=== PATIENT | female | born 1970 | race American Indian/Alaskan Native ===

== ENCOUNTER 2017-04-14 20:02 | Emergency (ER) | payer OTHER ==
[2017-04-14] MEDS ORDERED: TORADOL IM ONE (20:50)
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
[2017-04-14 22:51] VITALS: BP 126/85
--- NOTE | 2017-04-14 23:35 | XRay Report ---
FINAL REPORT EXAM: XR KNEE 3V LT HISTORY: left lateral knee pain after injury TECHNIQUE: Left knee three views 3 images PRIORS: None. FINDINGS: Bone mineralization appears within normal limits. No acute fracture or subluxation is identified. No gross abnormality is seen in the soft tissues. No joint effusion is seen. IMPRESSION: 1. No acute osseous abnormality is identified.
== END 2017-04-14 22:51 | disposition home or self-care (01) ==
LOC: ED 20:02 → EDBD 20:02 → ED 22:51
DX: S83.8X2A Sprain of other specified parts of left knee, initial encounter (principal); Z86.73 Personal history of transient ischemic attack (TIA), and cerebral infarction without residual deficits; Z88.0 Allergy status to penicillin; W03.XXXA Other fall on same level due to collision with another person, initial encounter; Y93.89 Activity, other specified; Y92.89 Other specified places as the place of occurrence of the external cause; Y99.8 Other external cause status
CPT/HCPCS: 29505; 73562; 96372; 99283; J1885

== ENCOUNTER 2017-04-30 09:35 | Outpatient (CLI) | payer OTHER ==
[2017-04-30] MEDS ORDERED: XYLOCAINE TOPICAL 4% TP ONE ×2 (10:12→10:17)
== END 2017-04-30 09:36 | disposition home or self-care (01) ==
LOC: WOUND 09:35
PROVIDERS: ATTEND Surgery
DX: T81.89XA Other complications of procedures, not elsewhere classified, initial encounter (principal); Y83.8 Other surgical procedures as the cause of abnormal reaction of the patient, or of later complication, without mention of misadventure at the time of the procedure; Y92.89 Other specified places as the place of occurrence of the external cause
CPT/HCPCS: 11042; G0463

== ENCOUNTER 2017-05-07 07:55 | Outpatient (CLI) | payer OTHER ==
[2017-05-07] MEDS ORDERED: XYLOCAINE TOPICAL 4% TP ONE (08:15)
== END 2017-05-07 07:56 | disposition home or self-care (01) ==
LOC: WOUND 07:55
PROVIDERS: ATTEND Surgery
DX: T81.89XD Other complications of procedures, not elsewhere classified, subsequent encounter (principal); Y83.8 Other surgical procedures as the cause of abnormal reaction of the patient, or of later complication, without mention of misadventure at the time of the procedure
CPT/HCPCS: 99213; G0463

== ENCOUNTER 2017-05-14 08:05 | Outpatient (CLI) | payer OTHER | END 2017-05-14 08:06 | disposition home or self-care (01) | LOC: WOUND 08:05 | PROVIDERS: ATTEND Surgery | DX: T81.89XD Other complications of procedures, not elsewhere classified, subsequent encounter (principal); Y83.8 Other surgical procedures as the cause of abnormal reaction of the patient, or of later complication, without mention of misadventure at the time of the procedure | CPT/HCPCS: 99214; G0463 ==

== ENCOUNTER 2017-05-22 08:03 | Outpatient (CLI) | payer OTHER | END 2017-05-22 08:04 | disposition home or self-care (01) | LOC: WOUND 08:03 | PROVIDERS: ATTEND Surgery | DX: T81.89XD Other complications of procedures, not elsewhere classified, subsequent encounter (principal); Y83.8 Other surgical procedures as the cause of abnormal reaction of the patient, or of later complication, without mention of misadventure at the time of the procedure | CPT/HCPCS: 99212; G0463 ==

== ENCOUNTER 2018-02-16 21:51 | Emergency (ER) | payer OTHER ==
--- NOTE | 2018-02-16 23:44 | Emergency Department Report ---
HPI - General Chief Complaint: Puncture Wound Time Seen by Provider: 02/16/18 23:37 - HPI HPI: ED physicians area The patient is a 47-year-old female presented with his chief complaint of needle stick. 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 She states the patient she will suturing had a rapid HIV as well as hepatitis panel here in the ED and the were negative. Patient states she already copiously irrigated and cleaned the puncture site. Patient has no complaints Location: Left index finger Duration: [See above] Quality: [See above] Severity: Mild Modifying factors: [see above] Context: [see above] Mode of transportation: Driving ED Past Medical Hx - Past Medical History Hx CVA: Yes (2012) - Surgical History Past Surgical History?: No Additional Surgical History: 2, tonsillectomy, herniorrhaphy - Social History Smoking Status: Never Smoker Substance Use Type: None - Medications Home Medications: Home Medications Medication Instructions Recorded Confirmed Last Taken Type Ibuprofen [Motrin] 600 mg PO Q8H PRN #30 tablet 04/14/17 Unknown Rx traMADol [Ultram 50 MG tab] 50 mg PO Q6HR PRN #20 tablet 04/14/17 Unknown Rx ED Review of Systems ROS: Stated complaint: NEEDLE STICK Other details as noted in HPI Skin: other (puncture wound left index finger) Physical Exam - Physical Exam Physical Exam: GENERAL: The patient is well-developed well-nourished female standing in room not appearing to be in acute distress. [] HEENT: Normocephalic. Atraumatic. SKIN: Minimal evidence of recent puncture wound to the fingertip of the left index finger. There is no bleeding or erythema. There is no rash. There is no edema. There is no diaphoresis. NEURO: The patient is awake, alert, and oriented. The patient has normal speech and gait. ED Medical Decision Making - Differential Diagnosis needle stick Critical care attestation.: If time is entered above; I have spent that time in minutes in the direct care of this critically ill patient, excluding procedure time. ED Disposition Clinical Impression: Needle stick injury of finger of left hand Disposition: DC-01 TO HOME OR SELFCARE Is pt being admited?: No Does the pt Need Aspirin: No Condition: Stable Instructions: Needle Stick Injuries (ED) Additional Instructions: Return to the emergency department immediately should you develop worsening symptoms, fever, inability to tolerate food or liquid or any other concerns. Referrals: [facility] CARE,MD [Primary Care Provider] - 3-5 Days Time of Disposition: 23:45
== END 2018-02-16 23:46 | disposition home or self-care (01) ==
LOC: ED 21:51
DX: S61.231A Puncture wound without foreign body of left index finger without damage to nail, initial encounter (principal); W45.8XXA Other foreign body or object entering through skin, initial encounter; Y93.89 Activity, other specified; Y92.89 Other specified places as the place of occurrence of the external cause; Y99.8 Other external cause status
CPT/HCPCS: 99281

== ENCOUNTER 2018-03-01 04:16 | Emergency (ER) | payer OTHER ==
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
[2018-03-01 06:01] VITALS: BP 138/87
== END 2018-03-01 06:02 | disposition home or self-care (01) ==
LOC: ED 04:16
DX: S61.230A Puncture wound without foreign body of right index finger without damage to nail, initial encounter (principal); W45.8XXA Other foreign body or object entering through skin, initial encounter; Y93.89 Activity, other specified; Y64.8 Contaminated medical or biological substance administered by other means
CPT/HCPCS: 36415; 86709; 87517; 99281